=== PATIENT | female | born 1995 | race Caucasian/White ===

== ENCOUNTER 2016-06-24 22:01 | Emergency (ER) | payer OTHER ==
[2016-06-25 00:38] VITALS: BP 126/87
== END 2016-06-25 00:38 | disposition home or self-care (01) ==
LOC: ED 22:01
DX: K21.9 Gastro-esophageal reflux disease without esophagitis (principal)
CPT/HCPCS: J1885

== ENCOUNTER 2017-02-26 14:59 | Emergency (ER) | payer OTHER ==
[~2017-02-26] VITALS: Ht 160 cm; Wt 89.9 kg
[2017-02-26 15:55] VITALS: Ht 160 cm; Wt 89.9 kg
[2017-02-26 20:55] VITALS: BP 128/69
== END 2017-02-26 18:45 | disposition home or self-care (01) ==
LOC: ED 14:59
DX: J20.9 Acute bronchitis, unspecified (principal); J06.9 Acute upper respiratory infection, unspecified

== ENCOUNTER 2017-12-31 22:53 | Emergency (ER) | payer OTHER ==
[2018-01-01 02:20] VITALS: BP 118/77
== END 2018-01-01 02:20 | disposition home or self-care (01) ==
LOC: ED 22:53
DX: L50.9 Urticaria, unspecified (principal); R06.02 Shortness of breath; R42 Dizziness and giddiness
CPT/HCPCS: J0171; J7512

== ENCOUNTER 2018-06-25 09:01 | Emergency (ER) | payer OTHER ==
[~2018-06-25] VITALS: Ht 160 cm; Wt 93.9 kg
[2018-06-25 09:11] VITALS: BP 116/63; Ht 160 cm; Wt 93.9 kg
== END 2018-06-25 11:52 | disposition home or self-care (01) ==
LOC: ED 09:01
DX: S93.401A Sprain of unspecified ligament of right ankle, initial encounter (principal); M54.9 Dorsalgia, unspecified; X50.1XXA Overexertion from prolonged static or awkward postures, initial encounter; Y93.89 Activity, other specified; Y92.89 Other specified places as the place of occurrence of the external cause; Y99.8 Other external cause status
CPT/HCPCS: J1100; J1885

== ENCOUNTER 2019-08-04 17:14 | Emergency (ER) | payer SELFPAY ==
[~2019-08-04] VITALS: Ht 160 cm; Wt 97.5 kg
[2019-08-04 17:34] VITALS: BP 111/67; Ht 160 cm; Wt 97.5 kg
== END 2019-08-04 19:13 | disposition home or self-care (01) ==
LOC: ED 17:14
DX: U07.1 COVID-19 (principal)
CPT/HCPCS: U0003-CS

== ENCOUNTER 2019-12-26 21:21 | Emergency (ER) | payer OTHER ==
[~2019-12-26] VITALS: Ht 160 cm; Wt 104.3 kg
[2019-12-26 21:29] VITALS: Ht 160 cm; Wt 104.3 kg
[2019-12-26 23:55] LABS: BASOPHIL % 1.5 % (0-2); PLATELET COUNT 165 x10^3mcL (130-400); RED CELL DISTRIBUTION WIDTH 12.5 % (11.5-14.5)
[2019-12-26 23:59] LABS: UA SPECIFIC GRAVITY 1.015 (1.005-1.035); microscopic required? YES; urine erythrocyte TRACE (NEGATIVE)
[2019-12-27 00:01] LABS: CALCIUM 9.2 mg/dL (8.5-10.1); CARBON DIOXIDE 26.3 mmol/L (21-32); CHLORIDE SERUM 102 mmol/L (98-107); CREATININE SERUM 0.5 mg/dL (0.6-1.0); GFR1 > 60 mL/min; GLUCOSE SERUM 87 mg/dL (74-106); POTASSIUM SERUM 3.9 mmol/L (3.5-5.1); SODIUM SERUM 136 mmol/L (136-145)
[2019-12-27 00:05] LABS: ALKALINE PHOSPHATASE 59 U/L (46-116); ALT/SGPT 20 U/L (14-59); AST/SGOT 15 U/L (15-37); BILIRUBIN TOTAL 0.3 mg/dL (0.20-1.00); TOTAL PROTEIN, SERUM 7.2 g/dL (6.4-8.2)
[2019-12-27 00:09] LABS: ALBUMIN 3.3 g/dL (3.4-5.0)
[2019-12-27 02:59] VITALS: BP 104/47
== END 2019-12-27 02:59 | disposition home or self-care (01) ==
LOC: ED 21:21
PROVIDERS: Emergency Medicine
DX: O23.01 Infections of kidney in pregnancy, first trimester (principal); Z3A.09 9 weeks gestation of pregnancy
CPT/HCPCS: J0696; J2405; J2765; J7030; J7060; Q0092